=== PATIENT | female | born 1970 | race Hispanic/Latino ===

== ENCOUNTER 2019-12-29 15:21 | Emergency (ER) | payer OTHER ==
[~2019-12-29] VITALS: Ht 137.2 cm; Wt 81.0 kg
[2019-12-29] MEDS ORDERED: CYCLOBENZAPR5 MG PO (15:48)
[2019-12-29] MEDS ORDERED: MOTRIN400 MG PO (15:48)
[2019-12-29 16:10] VITALS: BP 150/70
== END 2019-12-29 16:15 | disposition home or self-care (01) | DRG 552 ==
LOC: EDBD 15:21 → ED 15:21
DX: M54.5 Low back pain (principal); E11.9 Type 2 diabetes mellitus without complications; W17.89XA Other fall from one level to another, initial encounter; Y99.0 Civilian activity done for income or pay